=== PATIENT | male | born 1950 | race Asian ===

== ENCOUNTER 2022-03-14 06:14 | Day surgery (SDC) | payer OTHER ==
[~2022-03-14] VITALS: Ht 157.5 cm; Wt 70.0 kg
[~2022-03-14 06:14] MED LIST: SODIUM CHLORIDE 0.9% 1,000 ML IV ONE
[2022-03-14] MEDS ORDERED: LIDOCAINE 2% 11 ML JELLY TP ONE (06:15)
[2022-03-14] MEDS ORDERED: BENZOCAINE 20% 50 MCG/SPRAY 57 GM TP ONE (06:15)
[2022-03-14] MEDS ORDERED: ALBUTEROL SULFATE 2.5 MG/0.5 ML NEB SOLUTION NEB ONE (06:15)
[2022-03-14] MEDS ORDERED: SODIUM CHLORIDE 0.9% 1,000 ML ONE (06:32)
[2022-03-14 07:05] LABS: COVID AG,FIA SOURCE NASAL SWAB
[2022-03-14 07:56] LABS: GLUCOMETER DEV NAME(LOC) SDS.; GLUCOSE,POINT OF CARE 83 MG/DL (70-110)
[2022-03-14] MEDS ORDERED: FLUT1BLS IH (08:11)
[2022-03-14] MEDS ORDERED: OMEG10005 PO (08:11)
[2022-03-14] MEDS ORDERED: AMLO-258 PO (08:11)
[2022-03-14] MEDS ORDERED: ATOR40TA28 PO (08:11)
[2022-03-14] MEDS ORDERED: BUDE10.7 IH (08:11)
[2022-03-14] MEDS ORDERED: BACL10TA PO (08:11)
[2022-03-14] MEDS ORDERED: MONT-35 PO (08:11)
[2022-03-14] MEDS ORDERED: CELE200 PO (08:11)
[2022-03-14] MEDS ORDERED: METF-1211 PO (08:11)
[2022-03-14] MEDS ORDERED: PRED-729 PO (08:11)
[2022-03-14] MEDS ORDERED: LINA5TAB PO (08:11)
[2022-03-14] MEDS ORDERED: MIDAZOLAM HCL 5 MG/ML VIAL ONE (08:24)
[2022-03-14] MEDS ORDERED: FentaNYL CITRATE PF 100 MCG/2 ML VIAL ONE (08:24)
[2022-03-14] MEDS ORDERED: SODIUM CHLORIDE 0.9% 10 ML ONE (08:42)
[2022-03-14] MEDS ORDERED: MethylPREDNISolone SOD SUCC 125 MG/2 ML VIAL IVP ONE (09:45)
[2022-03-14] MEDS ORDERED: MethylPREDNISolone SOD SUCC 125 MG/2 ML VIAL ONE (10:04)
[2022-03-14] MEDS ORDERED: OXYGEN THERAPY IH SCH (20:00)
== END 2022-03-14 11:55 | disposition home or self-care (01) ==
LOC: SURGERY 06:14
PROVIDERS: ATTEND Internal Medicine Critical Care Medicine
DX: J38.4 Edema of larynx (principal); B37.0 Candidal stomatitis; Z79.899 Other long term (current) drug therapy; Z98.890 Other specified postprocedural states; Z98.49 Cataract extraction status, unspecified eye; Z86.73 Personal history of transient ischemic attack (TIA), and cerebral infarction without residual deficits; Z72.89 Other problems related to lifestyle
CPT/HCPCS: 31623; 88112; 82962; 87206; 87101; 87220; 87070; 88305; 88312; 31624; 71045; 87015; 87426; J3010; J2930; J2250; Q9967; J7030; C9803; J7613

== ENCOUNTER 2023-09-02 07:23 | Day surgery (SDC) | payer OTHER ==
[~2023-09-02] VITALS: Ht 157.5 cm; Wt 70.5 kg
[~2023-09-02 07:23] MED LIST changes: +AMLO-258 PO; +ATOR40TA28 PO; +BACL10TA PO; +BUDE10.7 IH; +CELE200 PO; +FLUT1BLS IH; +LINA5TAB PO; +METF-1211 PO; +MONT-35 PO; +OMEG10005 PO; +PRED-729 PO; -SODIUM CHLORIDE 0.9% 1,000 ML IV ONE; +SODIUM CHLORIDE 0.9% 1,000 ML ONE
[2023-09-02] MEDS ORDERED: ALBUTEROL SULFATE 2.5 MG/0.5 ML NEB SOLUTION NEB ONE (07:24)
[2023-09-02] MEDS ORDERED: BENZOCAINE 20% 50 MCG/SPRAY 57 GM TP ONE (07:24)
[2023-09-02] MEDS ORDERED: LIDOCAINE 2% 11 ML JELLY TP ONE (07:24)
[2023-09-02] MEDS ORDERED: LIDOCAINE 4% 50 ML SOLUTION TP ONE (07:24)
[2023-09-02] MEDS ORDERED: MIDAZOLAM HCL 2 MG/2 ML VIAL ONE (08:24)
[2023-09-02] MEDS ORDERED: FentaNYL CITRATE PF 100 MCG/2 ML VIAL ONE (08:24)
[2023-09-02 08:31] LABS: GLUCOMETER DEV NAME(LOC) SDS.; GLUCOSE,POINT OF CARE 110 MG/DL (70-110)
[2023-09-02] MEDS: SODIUM CHLORIDE 0.9% 1,000 ML IV ONE (08:38)
[2023-09-02] MEDS ORDERED: MethylPREDNISolone SOD SUCC 125 MG/2 ML VIAL ONE (09:14)
[2023-09-02 09:51] VITALS: PULSE 73; RESP 19; O2SAT 100
[2023-09-02] MEDS: MethylPREDNISolone SOD SUCC 125 MG/2 ML VIAL IVP ONE (10:12)
[2023-09-02] MEDS: PROMETHAZINE HCL/PHENYLEPHRINE/CODEINE 5 ML ORAL.SYG PO ONE (10:34)
== END 2023-09-02 12:20 | disposition home or self-care (01) ==
LOC: SURGERY 07:23
PROVIDERS: ATTEND Internal Medicine Critical Care Medicine
DX: R05.3 Chronic cough (principal); R91.1 Solitary pulmonary nodule; J98.09 Other diseases of bronchus, not elsewhere classified; J98.8 Other specified respiratory disorders; Z79.899 Other long term (current) drug therapy; Z98.890 Other specified postprocedural states
CPT/HCPCS: 31623; 88112; 82962; 87206; 87101; 87220; 87070; 88305; 31624; 94640; 71045; 87015; J3010; J2250; J2930; Q9967; J7030; J7613; Z7610